=== PATIENT | male | born 1990 | race Caucasian/White ===

== ENCOUNTER 2021-03-20 08:15 | Outpatient (RCR) | payer OTHER | END 2021-03-23 | disposition home or self-care (01) | LOC: MKS.ESL.PT | DX: M25.561 Pain in right knee (principal); M25.562 Pain in left knee ==

== ENCOUNTER → 2021-08-14 08:45 | Outpatient (RCR) | payer OTHER | END | disposition home or self-care (01) | LOC: MKS.ESL.PT 04-05 09:45 | DX: M25.561 Pain in right knee (principal) ==

== ENCOUNTER → 2022-01-17 | Outpatient (CLI) | payer BC | LOC: COL.RAD 06:44 | DX: R74.8 Abnormal levels of other serum enzymes (principal); R19.7 Diarrhea, unspecified ==

== ENCOUNTER 2022-06-15 18:23 | Emergency (ER) | payer BC ==
[~2022-06-15] VITALS: Ht 175.3 cm; Wt 105.5 kg
[2022-06-15 18:28] VITALS: BP 154/90; TEMP 98.5
[2022-06-15] MEDS ORDERED: ILOTYCIN5 MG/GM OP (20:22)
[2022-06-15 20:35] VITALS: PULSE 91
== END 2022-06-15 20:35 | disposition home or self-care (01) ==
LOC: COL.ER 18:23
DX: H18.821 Corneal disorder due to contact lens, right eye (principal)